=== PATIENT | female | born 1955 | race Two or more races ===

== ENCOUNTER → 2017-09-11 | Outpatient (CLI) | payer OTHER ==
[2017-09-11 11:26] LABS: UA SPECIFIC GRAVITY 1.025 (1.005-1.035); microscopic required? YES; urine erythrocyte NEGATIVE (NEGATIVE)
[2017-09-11 11:27] LABS: BASOPHIL % 0.4 % (0-2); PLATELET COUNT 366 x10^3mcL (130-400)
[2017-09-11 11:33] LABS: rbc morphology (normal/abnorm) ABNORMAL (NORMAL)
[2017-09-11 11:52] LABS: ALKALINE PHOSPHATASE 88 U/L (46-116); ALT/SGPT 37 U/L (14-59); AST/SGOT 63 U/L (15-37); BILIRUBIN TOTAL 0.46 mg/dL (0.20-1.00); CALCIUM 8.9 mg/dL (8.5-10.1); CARBON DIOXIDE 28.5 mmol/L (21-32); CHLORIDE SERUM 101 mmol/L (98-107); CHOLESTEROL 161 mg/dL (<200); CHOLESTEROL/HDL RATIO 2.8; CREATININE SERUM 0.9 mg/dL (0.6-1.0); GFR1 > 60 mL/min; GLUCOSE SERUM 182 mg/dL (74-106); HDL CHOLESTEROL 58 mg/dL (40-60); POTASSIUM SERUM 4.1 mmol/L (3.5-5.1); SODIUM SERUM 140 mmol/L (136-145); TRIGLYCERIDES 177 mg/dL (<150)
[2017-09-11 11:53] LABS: TOTAL PROTEIN, SERUM 8.3 g/dL (6.4-8.2)
[2017-09-11 11:54] LABS: ALBUMIN 3.1 g/dL (3.4-5.0)
[2017-09-11 11:59] LABS: FREE T4 1.41 ng/dL (0.76-1.46)
[2017-09-11 12:35] LABS: ERYTHROCYTE SED RATE 60 mm/hr (0-30)
[2017-09-11 13:26] LABS: T3 TOTAL 1.08 ng/mL
== END | disposition home or self-care (01) ==
LOC: LB 10:57
DX: E88.81 Metabolic syndrome and other insulin resistance (principal); R06.02 Shortness of breath; M19.90 Unspecified osteoarthritis, unspecified site
CPT/HCPCS: 84439

== ENCOUNTER → 2017-09-13 | Outpatient (CLI) | payer OTHER | END | disposition home or self-care (01) | LOC: MA 16:00 | PROC: BH02ZZZ Plain Radiography of Bilateral Breasts (ICD-10-PCS; principal; 2017-09-13) | DX: Z12.31 Encounter for screening mammogram for malignant neoplasm of breast (principal) | CPT/HCPCS: 77067 ==

== ENCOUNTER → 2017-12-18 | Outpatient (CLI) | payer OTHER ==
[2017-12-18 11:40] LABS: BASOPHIL % 0.6 % (0-2); PLATELET COUNT 387 x10^3mcL (130-400)
[2017-12-18 11:43] LABS: RED CELL DISTRIBUTION WIDTH 17.4 % (11.5-14.5)
[2017-12-18 11:51] LABS: IRON 41 ug/dL (50-170); TOTAL IRON BINDING CAPACITY 413 ug/dL (250-450)
[2017-12-18 11:55] LABS: CHOLESTEROL/HDL RATIO 2.5
[2017-12-19 13:46] LABS: microalbumin:creatinine ratio 12.7 (0.0-30.0)
== END | disposition home or self-care (01) ==
LOC: LB 10:41
DX: E11.9 Type 2 diabetes mellitus without complications (principal); R03.0 Elevated blood-pressure reading, without diagnosis of hypertension; E78.5 Hyperlipidemia, unspecified; E03.9 Hypothyroidism, unspecified

== ENCOUNTER → 2018-06-25 | Outpatient (CLI) | payer OTHER ==
[2018-06-25 08:28] LABS: BASOPHIL % 0.5 % (0-2); PLATELET COUNT 351 x10^3mcL (130-400)
[2018-06-25 08:33] LABS: RED CELL DISTRIBUTION WIDTH 17.5 % (11.5-14.5)
[2018-06-25 08:48] LABS: BILIRUBIN TOTAL 0.33 mg/dL (0.20-1.00); CALCIUM 8.8 mg/dL (8.5-10.1); CARBON DIOXIDE 31.5 mmol/L (21-32); POTASSIUM SERUM 4.6 mmol/L (3.5-5.1)
[2018-06-25 08:49] LABS: ALBUMIN 3.2 g/dL (3.4-5.0); CHOLESTEROL/HDL RATIO 2.2
== END | disposition home or self-care (01) ==
LOC: LB 07:59
DX: E11.9 Type 2 diabetes mellitus without complications (principal); D64.9 Anemia, unspecified; E78.5 Hyperlipidemia, unspecified

== ENCOUNTER → 2019-07-22 | Outpatient (CLI) | payer OTHER ==
[2019-07-22 08:52] LABS: BASOPHIL % 0.3 % (0-2); PLATELET COUNT 362 x10^3mcL (130-400)
[2019-07-22 09:04] LABS: RED CELL DISTRIBUTION WIDTH 16.6 % (11.5-14.5)
[2019-07-22 09:39] LABS: ALBUMIN 3.4 g/dL (3.4-5.0); BILIRUBIN TOTAL 0.5 mg/dL (0.20-1.00); CALCIUM 9.3 mg/dL (8.5-10.1); CARBON DIOXIDE 30.7 mmol/L (21-32); FREE T4 1.4 ng/dL (0.76-1.46); POTASSIUM SERUM 4.2 mmol/L (3.5-5.1); TOTAL PROTEIN, SERUM 8.1 g/dL (6.4-8.2)
[2019-07-22 09:41] LABS: CHOLESTEROL/HDL RATIO 2.3
[2019-07-23 08:05] LABS: microalbumin:creatinine ratio 6.2 (0.0-30.0)
== END | disposition home or self-care (01) ==
LOC: LB 08:12
DX: E11.9 Type 2 diabetes mellitus without complications (principal); I10 Essential (primary) hypertension; E78.5 Hyperlipidemia, unspecified; E05.90 Thyrotoxicosis, unspecified without thyrotoxic crisis or storm
CPT/HCPCS: 84439

== ENCOUNTER → 2020-03-17 | Outpatient (CLI) | payer OTHER ==
[2020-03-17 10:12] LABS: ALBUMIN 3.4 g/dL (3.4-5.0); BILIRUBIN TOTAL 0.39 mg/dL (0.20-1.00); CALCIUM 9.5 mg/dL (8.5-10.1); CARBON DIOXIDE 27.5 mmol/L (21-32); CREATININE SERUM 1.2 mg/dL (0.6-1.0); POTASSIUM SERUM 4.5 mmol/L (3.5-5.1); TOTAL PROTEIN, SERUM 8.1 g/dL (6.4-8.2)
[2020-03-17 10:18] LABS: CHOLESTEROL/HDL RATIO 2.6
== END | disposition home or self-care (01) ==
LOC: LB 08:36
DX: E11.9 Type 2 diabetes mellitus without complications (principal); I10 Essential (primary) hypertension; E78.5 Hyperlipidemia, unspecified; E55.9 Vitamin D deficiency, unspecified; E03.9 Hypothyroidism, unspecified

== ENCOUNTER → 2020-06-25 | Outpatient (CLI) | payer OTHER | LOC: MA 14:23 | DX: Z12.31 Encounter for screening mammogram for malignant neoplasm of breast (principal) | CPT/HCPCS: 77067 ==